=== PATIENT | male | born 1980 | race Caucasian/White ===

== ENCOUNTER 2021-04-15 16:49 | Outpatient (REF) | payer OTHER, SELFPAY ==
--- NOTE | ~2021-04-15 | XR_ITS ---
EXAMINATION: XR CHEST CLINICAL INFORMATION: Cough. COMPARISON: None TECHNIQUE: 2 views of the chest were obtained. FINDINGS: No significant abnormality is noted involving the heart, lungs, mediastinum, bony thorax or soft tissues. XR/XR chest 2V IMPRESSION: Unremarkable examination.
== END 2021-04-15 16:50 | disposition home or self-care (01) ==
LOC: HO.HMGCX 16:49
PROVIDERS: PCP Internal Medicine; Visit Provider Physician Assistant Medical
DX: R05.9 Cough, unspecified (principal)
CPT/HCPCS: 71046

== ENCOUNTER 2023-01-19 11:27 | Outpatient (REF) | payer OTHER, SELFPAY ==
--- NOTE | ~2023-01-19 | XR_ITS ---
EXAMINATION: XR CHEST CLINICAL INFORMATION: Multiple rib fractures COMPARISON: Chest radiograph 01/07/2023 CT 12/29/2022 TECHNIQUE: 2 views of the chest were obtained. FINDINGS: Multiple displaced left lateral rib fractures again demonstrated with a small amount of residual subcutaneous emphysema along the lower lateral chest wall. No definite pneumothorax. Subtle hazy opacity in the left midlung may represent residual atelectasis or trace fluid in the major fissure. The lungs appear otherwise clear. Normal cardiomediastinal silhouette. XR/XR chest 2V IMPRESSION: Multiple displaced left lateral rib fractures with a small amount of residual subcutaneous emphysema. No definite pneumothorax.
== END 2023-01-19 11:28 | disposition home or self-care (01) ==
LOC: HO.HMGCX 11:27
PROVIDERS: PCP Internal Medicine; Visit Provider Physician Assistant Surgical
DX: S22.43XA Multiple fractures of ribs, bilateral, initial encounter for closed fracture (principal); X58.XXXA Exposure to other specified factors, initial encounter; Y93.9 Activity, unspecified; Y92.9 Unspecified place or not applicable; Y99.9 Unspecified external cause status
CPT/HCPCS: 71046